=== PATIENT | female | born 1985 | race Caucasian/White ===

== ENCOUNTER 2016-08-12 13:20 | Emergency (ER) | payer MEDICAID ==
[~2016-08-12] VITALS: Ht 170.2 cm; Wt 72.7 kg
[2016-08-12 13:25] VITALS: BP 114/77
[2016-08-12] MEDS ORDERED: LORazepam 1MG TABLET ONE (13:50)
[2016-08-12] MEDS ORDERED: LORazepam 1MG TABLET PO ONE (14:00)
== END 2016-08-12 15:24 | disposition home or self-care (01) ==
LOC: ED 15:20
DX: F41.1 Generalized anxiety disorder (principal); F33.9 Major depressive disorder, recurrent, unspecified
CPT/HCPCS: 99284